=== PATIENT | female | born 1940 | race Caucasian/White ===

== ENCOUNTER → 2016-10-22 | Outpatient (CLI) | payer OTHER ==
[~2016-10-22] MED LIST: ACETAMINOPHEN PO; ALLERCLEAR10 MG PO; APRESOLINE PO; ASPIR-TRIN325 MG PO; ASPIRIN EC81 M1 PO; ASPIRIN PO; ASPIRIN325 M1 PO; ASPIRIN81 M2 PO; BACITRACIN3.5 G1 OP; BENICAR PO; BUMETANIDE0.5 MG PO; BUMETANIDE1 MG PO; BUMEX PO; CALCIUM + D 6001 TA1 PO; CALCIUM 500 MG1 TAB PO; CALCIUM 600 +1 EA14; CALCIUM PO; CLARITIN10 M1 PO; CLARITIN10 M2 PO; CLARITIN5 MG PO; CLEAR ATADI PO; COLACE PO; COUMADIN PO; COUMADIN4 MG PO; COUMADIN5 MG PO; COUMADIN6 MG PO; DARVOCET-N 1001 TAB PO; DESYREL50 M1 PO; DESYREL50 MG DOB; DESYREL50 MG PO; FERRO-TIME325 MG PO; FLEXERIL10 MG PO; HYDRALAZINE HCL50 MG PO; K-DUR20 ME2 PO; KEFLEX PO; KLOR-CON PO; LIPITOR20 MG PO; LOPRESSOR PO; LORATADINE; LOSARTAN POTAS100 MG PO; LOTENSIN HCT 201 TA1 PO; LOVENOX SUBQ; LOVENOX80 MG/0.8 IJ; LOVENOX80 MG/0.8 SUBQ; METOPROLOL SUC100 MG PO; METOPROLOL SUCC25 MG PO; METOPROLOL SUCC50 MG PO; MILK OF MAGNESIA PO; MULTI VITAMIN1 EACH PO; MULTI-DAY VITAM1 TAB PO; MULTIPLE VITAMI1 T13 PO; NAPROXEN PO; NORVASC PO; NORVASC10 MG PO; POTASSIUM PO; POTASSIUM99 M1 PO; PROTONIX PO; TOPROL XL PO; TRAMADOL HCL50 M1 PO; TRAMADOL HCL50 M2 PO; TRAZADONE PO; TYLENOL325 M1 PO; VITAMIN B 12 PO; VITAMIN B12-FO1 EACH PO; VITAMIN D35000 UNI1 PO; VITAMIN D35000 UNIT PO; [UNRECOGNIZED DRUG - OTHER] PO
--- NOTE | ~2016-10-22 | BD1 ---
[facility] A Service of [facility] RADIOLOGY TEXT RESULTS PATIENT: BELEM KOCH LOCATION: [facility] : 36 UNIT #: [id number] AGE: [address]: Samantha Anna MD SEX: F ORDER DR: [id number] [facility] [address] [place], [place] [address] [id number] O MR#: [id number] Acc #: [id number] NAME: BELEM KOCH : 1940 SEX: F STUDY DATE/TIME: 10/22/2016 10:02 UNIT: [facility] ROOM: STUDY DESCRIPTION: BD Dexa Bone Dens 1+ Site Attending Physician: Samantha Anna M.D. Ordering Physician: Samantha Anna M.D. Primary Care Physician: Samantha Anna M.D. MEDICAL IMAGING REPORT This report is preliminary unless electronic signature is present EXAM DXA scan 10/22/2016 HISTORY Status post menopause with no hormone replacement therapy. Osteopenia. Hysterectomy. Arthritis. Hypertension with blood pressure medication for 10 years. Family history of osteoporosis in mother. FINDINGS Bone mineral density in the lumbar spine from L1-L4 was 1.104 g/cm2 which is 0.5 standard deviations above the mean when compared to the young adult reference population which is within the range of normal. This is 3.1 standard deviations above the mean when compared to the age-matched population. Bone mineral density in the left femoral neck was 0.694 g/cm2 which is 1.4 standard deviations below the mean when compared to the young adult reference population which is characteristic of osteopenia. This is 0.8 standard deviations above the mean when compared to the age-matched population. IMPRESSION Bone mineral density in the lumbar spine within the range of normal and within the left hip characteristic of osteopenia. Dictated by... Jason Castelan M.D. THIS IS AN ELECTRONICALLY VERIFIED REPORT Jason Castelan M.D. at 10/24/2016 8:16 AM KIMBERLY/noble TD: 10/22/2016 14:05 JOB #: [id number] [facility] A Service of [facility] RADIOLOGY TEXT RESULTS PATIENT: BELEM KOCH LOCATION: [facility] : 36 UNIT #: [id number] AGE: [address]: Samantha Anna MD SEX: F ORDER DR: MEDICAL IMAGING REPORT Page 1 of 1 COPY
== END | disposition home or self-care (01) ==
LOC: CWCC 09:39
DX: Z78.0 Asymptomatic menopausal state (principal); M85.88 Other specified disorders of bone density and structure, other site
CPT/HCPCS: 77080

== ENCOUNTER → 2016-11-27 | Outpatient (CLI) | payer OTHER ==
--- NOTE | ~2016-11-27 | HM ---
Unit #: [id number] #: [id number] Patient: BELEM KOCH [id number]. [place], [place] [address] [id number] O MR#: [id number] NAME: BELEM KOCH. : 1940 SEX: F STUDY DATE/TIME: 11/27/2016 UNIT: CE ROOM: STUDY DESCRIPTION: Holter Monitor Attending Physician: Mary Kate Carolina A.P.R.N. Referring Physician: Mary Kate Carolina A.P.R.N. Primary Care Physician: Samantha Anna M.D. CARDIOLOGY REPORT EXAM 24 hour holter monitor DATE APPLIED 11/27/2016 DATE SCANNED 12/02/2016 ORDERED BY Mary Kate Carolina A.P.R.N. READ BY Dr. David George INDICATION Tachycardia. SUMMARY The patient was monitored for 24 hours. A total of 93,398 QRS complexes were analyzed. There was less than 1% ventricular and supraventricular beats. The average heart rate was 65 beats/minute. The minimum heart rate was 11 beats/minute at approximately 5 p.m. Maximum heart rate 100 beats/minute at approximately 100 a.m. There were no pauses. The rhythm was sinus throughout. There were episodes of significant baseline artifact. Supraventricular Ectopy: 507 isolated beats, with 61 couplets, and 34 runs totaling 112 beats. Most of these were short, three and four beats in duration, the fasted being 104 beats/minute and three beats in duration. The longest was four beats in duration. Ventricular Ectopy: 574 isolated beats, 66 couplets, 20 bigeminal cycles, and 12 runs totaling 43 beats. The longest run and the fastest run were both associated with significant baseline artifact. In reviewing the actual tracings, the beats appear to be of slightly different axis, and may represent ventricular ectopic beats. However, there appear to be sinus beats before each of these, thus, we would not consider most of these ventricular runs. Symptoms: None. Patient Activated Events: None. Unit #: [id number] #: [id number] Patient: BELEM KOCH IMPRESSION 1. No significant tachycardia. 2. Normal average heart rate. 3. No pauses. 4. Ventricular ectopic beats, without significant runs. The areas classified as ventricular runs actually represent baseline artifact. 5. No significant supraventricular ectopy. 6. Overall normal Holter based on the patient's age. Dictated by... Kasia Steiner/delaney TD: 12/05/2016 09:03 JOB #: [id number] CARDIOLOGY REPORT Page 1 of 1 X David George MD HOLTER MONITOR REPORT
== END | disposition home or self-care (01) ==
LOC: CEKG 07:26
DX: R00.0 Tachycardia, unspecified (principal)
CPT/HCPCS: 93225; 93226